=== PATIENT | female | born 1970 | race Two or more races ===

== ENCOUNTER 2018-07-19 22:36 | Emergency (ER) ==
[~2018-07-19] VITALS: Ht 167.6 cm; Wt 70.0 kg
[2018-07-19 23:04] VITALS: BP 125/91
[2018-07-20 11:15] LABS: HEPATITIS C ANTIBODY Nonreactive
[2018-07-20 11:16] LABS: HIV-1/2 AB/AG COMBO Nonreactive
[2018-07-20 11:21] LABS: HEPATITIS B SURFACE ANTIBODY REACTIVE
== END 2018-07-19 23:04 | disposition home or self-care (01) ==
LOC: EME 22:36
PROVIDERS: Emergency Medicine
DX: Z77.21 Contact with and (suspected) exposure to potentially hazardous body fluids (principal); Z57.8 Occupational exposure to other risk factors; W46.0XXA Contact with hypodermic needle, initial encounter; Y99.0 Civilian activity done for income or pay
CPT/HCPCS: 86706; 86803; 87389